=== PATIENT | male | born 1990 | race Caucasian/White ===

== ENCOUNTER 2022-09-17 14:06 | Emergency (ER) | payer BC, SELFPAY ==
[2022-09-17 14:32] VITALS: BP 154/97; PULSE 93; RESP 18; TEMP 36.7; O2SAT 97
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
[2022-09-17 16:39] LABS: Abs Immature Grans 0.04 10^3/uL (0.0-0.06); Absolute Basophil Count 0.08 10^3/uL (0.0-0.2); Absolute Eosinophil Count 0.16 10^3/uL (0.0-0.7); Absolute Lymphocyte Count 1.86 10^3/uL (1.2-3.4); Absolute Monocyte Count 0.52 10^3/uL (0.1-0.8); Absolute Neutrophil Count 4.35 10^3/uL (1.2-6.7); Basophils % 1.1; Eosinophils % 2.3; HCT 45.1 % (40.0-50.0); HGB 15.6 g/dL (13.5-17.5); Immature Grans % 0.6; Lymphocytes % 26.5; MCH 30.5 pg (27.0-33.0); MCHC 34.6 % (32.0-36.0); MCV 88 fL (80-95); MPV 10.3 fL (8.0-11.0); Monocytes % 7.4; Neutrophils % 62.1; Platelet Count 250 10^3/uL (130-400); RBC 5.11 10^6/uL (4.36-5.78); RDW 12.3 % (11.8-14.1); RDW-SD 38.6 fL; WBC 7.01 10^3/uL (4.4-10.8)
[2022-09-17 16:42] LABS: ESR 15 mm/hr (0-15)
[2022-09-17] MEDS: Ketorolac 15 MG/ML VIAL IVP (16:47)
[2022-09-17 16:50] LABS: ALT 32 U/L (16-63); AST 15 U/L (15-37); Albumin 4.6 g/dL (3.4-5.0); Alkaline Phosphatase 71 U/L (46-116); BUN 10 mg/dL (7-18); Bilirubin, Total 0.7 mg/dL (0.2-1.0); C-Reactive Protein 0.38 mg/dL (0.0-0.3); CREATININE 0.9 mg/dL (0.70-1.30); Calcium 9.6 mg/dL (8.5-10.1); Chloride 102 mmol/L (98-107); Estimated GFR 116.37 (mL/min/1.73m2); Glucose 97 mg/dL (74-106); Potassium 3.9 mmol/L (3.5-5.1); Sodium 141 mmol/L (136-145); Total Protein 8.6 g/dL (6.4-8.2)
--- NOTE | 2022-09-17 18:03 | DI.VRAD_ITS ---
PROCEDURE INFORMATION: Exam: CT Left Upper Extremity Without Contrast, Hand Exam date and time: 09/17/2022 5:39 PM Age: 32 years old Clinical indication: Other: Hand injury, immobile 4th and 5th digit TECHNIQUE: Imaging protocol: Computed tomography of the left upper extremity without contrast. Exam focused on the hand. COMPARISON: No relevant prior studies available. FINDINGS: Bones/joints: Obliquely oriented fractures of the ring and little finger distal diametaphysis of the metacarpals. The little finger has a cortical fragment medially. The remainder of the metacarpals and phalanges are intact. Soft tissues: Mild soft tissue edema near the fractures. No definite tendon rupture. IMPRESSION: Oblique fractures of the little and ring finger metacarpals. No intra-articular component. Dictated and Authenticated by: aCsey Kendrick MD. Ordering:DORA Taylor MD
--- NOTE | 2022-09-17 18:34 | NUR.NOTE ---
Nursing Note: Referral given to Care Management to [facility] Hand Surgeon, metacarpal fractures 4th and 5th. If possible by Thursday.
[2022-09-17 18:43] VITALS: BP 162/85; PULSE 88; RESP 18; O2SAT 98
--- NOTE | 2022-09-18 09:23 | CMACTNOTE_ITS ---
- If Service Date Differs Date of service: 09/18/22 Time of Service: 09:23 Care Management Activity Note Alvin is seen in the ED for finger fractures. At the request of ED provider, CASSIDY coordinates a referral to [facility] Hand Surgery to assist Alvin in obtaining an appointment for further evaluation and treatment. He has BCBS for insurance.
== END 2022-09-17 18:43 | disposition home or self-care (01) ==
PROVIDERS: Emergency Provider Emergency Medicine
DX: S62.395A Other fracture of fourth metacarpal bone, left hand, initial encounter for closed fracture (principal); S62.397A Other fracture of fifth metacarpal bone, left hand, initial encounter for closed fracture; W22.09XA Striking against other stationary object, initial encounter
CPT/HCPCS: 29125; 80053; 85652; 96374; 99284; 73200; 85025; 86140; J1885

== ENCOUNTER 2023-11-19 21:17 | Emergency (ER) | payer BC, SELFPAY ==
[2023-11-19 21:20] VITALS: BP 188/120; PULSE 100; RESP 16; TEMP 36.4; O2SAT 98
--- NOTE | 2023-11-19 21:30 | DI.RAD_ITS ---
Exam(s) XR HAND RT COMPLETE EXAM: XR HAND RT COMPLETE CLINICAL HISTORY: lacerations d/t dog bite, r/o fx. TECHNIQUE: 2D digital imaging was performed. Three views. COMPARISON: No exams were available for comparison FINDINGS: BONES: No acute fracture is present. No bony destructive lesion is seen. JOINTS: No dislocation present. SOFT TISSUE: Soft tissue wound involving the proximal portions of the 2nd and 3rd fingers at the vola r aspect. No foreign body. IMPRESSION: Soft tissue injury to the 2nd and 3rd fingers. No evidence of fracture or foreign body. DATA REPOSITORY: RADIATION DOSE DELIVERED:
--- NOTE | 2023-11-19 21:43 | ED.GENADUL_ITS ---
Discharge Plan Disposition Patient Disposition: Home Discharge Details Clinical Impression: Dog bite of multiple sites of right hand and fingers Primary Care Provider: Unknown,Unknown ED Provider: Kiley Mcleod Home Meds and New Rx's Prescriptions: New amoxicillin-pot clavulanate 875-125 mg tablet 1 tab PO BID Qty: 10 0RF Discharge Instructions Instructions: Animal Bite (ED) Additional Instructions: Please call [facility] Orthopedics at [phone] first thing in the morning to schedule an appointment for evaluation of your R middle finger laceration and likely tendon injury. Keep your splint clean and dry until you are seen by surgery. Take the antibiotics as prescribed to help prevent infection. You may use tylenol 650 every 6 hours or ibuprofen 600 mg every 8 hours as needed for discomfort. Elevate your hand above heart level to help with swelling. Return to emergency care if you develop severe hand pain, numbness/coolness to your finger tips, signs of infection such as pus drainage/foul odor/fevers, or if you are very concerned and need to be rechecked again immediately. HPI General Date/Time Provider Initiated Documentation: 11/19/23 21:19 . HPI Narrative: Alvin is a 33-year-old male who presents to the emergency department today for evaluation of right hand laceration. He reports that he has been dog sitting for his roommates dog, a large husky who is up-to-date for shots. He got bitten by the dog when he went to take the dog off of the lead. This occurred approximately 45 minutes prior to arrival to the emergency department. He was able to control bleeding with pressure and elevation. He does admit to drinking alcohol tonight, said he had a friend to drive him to the emergency department. He reports he is in good health, no chronic medical conditions or immunocompromise. He is up-to-date for tetanus, does not remember when he last tetanus booster. He is right-handed. Related Data Home Medications Medication Instructions Recorded Confirmed amoxicillin 875 mg-potassium 1 tab PO BID #10 tabs 11/19/23 clavulanate 125 mg tablet Previous Rx's Medication Instructions Recorded amoxicillin 875 mg-potassium 1 tab PO BID #10 tabs 11/19/23 clavulanate 125 mg tablet Allergies Allergy/AdvReac Type Severity Reaction Status Date / Time No Known Allergies Allergy Unverified 05/15/14 07:53 General Stated Complaint: AnimalBite SHELIA: 4 Review of Systems Narrative: see HPI Course Vital Signs Vital signs: Vital Signs Temperature 36.4 C 11/19/23 21:20 Pulse 100 H 11/19/23 21:20 Respiratory Rate 16 11/19/23 21:20 Blood Pressure 188/120 H 11/19/23 21:20 Pulse Oximetry 98 11/19/23 21:20 Temperature 36.4 C 11/19/23 21:20 Pulse 100 H 11/19/23 21:20 Respiratory Rate 16 11/19/23 21:20 Respiratory Effort Normal 11/19/23 21:25 Blood Pressure 188/120 H 11/19/23 21:20 Pulse Oximetry 98 11/19/23 21:20 Oxygen Delivery Method Room Air 11/19/23 21:20 Oxygen Flow Rate 0 11/19/23 21:20 Pain Level 3 11/19/23 21:20 Procedures Laceration Laceration 1: Site: hand (R middle finger) Size (cm): 5 Description: flap (curved laceration to radial aspect of R middle finger) Depth: simple, single layer Local Anesthetic: Lidocaine 2% Amount of anesthesia used (mL): 5 Pre-repair: wound explored, irrigated extensively and deep structures intact Skin layer closed with: nylon Size (cm): 4-0 Number of sutures: 3 Technique: simple, interrupted Medical Decision Making Alvin is a 33-year-old male who presents to the emergency department today for evaluation of right hand laceration. He reports that he has been dog sitting for his roommates dog, a large husky who is up-to-date for shots. He got bitten by the dog when he went to take the dog off of the lead. This occurred approximately 45 minutes prior to arrival to the emergency department. He was able to control bleeding with pressure and elevation. He does admit to drinking alcohol tonight, said he had a friend to drive him to the emergency department. He reports he is in good health, no chronic medical conditions or immunocompromise. He is up-to-date for tetanus, does not remember when he last tetanus booster. He is right-handed. Dog is UTD for shots; this is a dog that is well known to patient. Physical exam remarkable for 5 cm laceration around the proximal phalanx of the right middle finger, a superficial 4 cm laceration to the lateral aspect of the right middle finger, various superficial abrasions/lacerations to the fingers. a 2 cm curved laceration noted to the palmar aspect of the R hand. Full extension, decreased flexion to right middle PIP. Brisk cap refill. No other injuries reported. Xray performed to r/o fracture or foreign body. As pt has decreased flexion to middle finger, concern for flexor tendon injury. Xray negative for acute abnormality. While in the emergency dept Alvin received ibuprofen for pain control and tdap booster (last recorded was in 2017 according to medical records). Augmentin given PO. Wound was irrigated extensively with tap water and cleansed with hibiclens. The wound was explored to the base in a bloodless field after infiltration with local anesthetic and digital block; flexor tendon was noted to be torn. No foreign bodies visualized. 3 sutures were placed to loosely approximate edges, a petroleum gauze was applied, and kerlix wrap applied. A splint was applied to maintain finger in position of comfort. 22:45: Call placed to [facility] hand surgery to arrange for follow up. Awaiting callback, handoff report given to Dr Lacey, overnight attending Quality:[facility] Health Related Social Needs: No Data to Display [facility] All Active Problems (Updated 11/19/23 @ 23:02 by Kiley Crenshaw) Dog bite of multiple sites of right hand and fingers (Acute) Social History Smoking/Tobacco Use Status: Never Smoking risk assessment performed?: Yes Drug use: Never Substance use type: does not use Do you feel safe at home: Yes Do you feel safe in your relationship?: Yes
[2023-11-19] MEDS: Ibuprofen 600 MG TAB PO (21:45)
[2023-11-19] MEDS: Chlorhexidine 4% 120 ML BTL (21:45)
[2023-11-19] MEDS: Amoxicillin 875/Clav. 125 TAB PO (21:45)
[2023-11-19] MEDS: Tetanus & Diphtheria Tox,ADULT 0.5 ML VIAL IM (21:46)
[2023-11-19] MEDS: Lidocaine 2% Pres-Free 5 ML VIAL IJ (22:26)
--- NOTE | 2023-11-19 23:31 | DI.VRAD_ITS ---
PROCEDURE INFORMATION: Exam: XR Right Hand Exam date and time: 11/19/2023 10:05 PM Age: 33 years old Clinical indication: Injury or trauma; Other: Lacerations d/t dog bite, R/O FX; Hand; Right TECHNIQUE: Imaging protocol: Radiologic exam of the right hand. Views: 3 or more views. COMPARISON: No relevant prior studies available. FINDINGS: Bones/joints: No fracture or dislocation. Soft tissues: No soft tissue foreign body. Soft tissue swelling of the right 3rd finger. Cannot exclude mild soft tissue emphysema of the radial base of the 3rd finger. IMPRESSION: 1. No fracture or dislocation. 2. No soft tissue foreign body. Dictated and Authenticated by: Joss Montalvo MD. Ordering:MICHAEL Cao MD
--- NOTE | 2023-11-19 23:33 | W.EDPROG ---
Date of service: 11/19/23 Time of Service: 23:33 Medical Decision Making Discussed case with Dr. Browne, plastic surgeon at [facility]. He has patient's information, will help facilitate follow-up. Patient to call in the morning to schedule follow-up appointment on Thursday or Thursday. Dr. Browne is comfortable with patient waiting until Thursday if needed, especially as he will be treated with antibiotics. Reviewed discharge instructions with patient, including red flags indicate need for return to emergency care. He is agreeable with plan of care Quality:[facility] Health Related Social Needs: No Data to Display Sign Out Sign Out Data: Sign Out Comment: Alvin is a 33-year-old male [id number] presents to the emergency department today for evaluation of dog bite to right hand. 5 cm curved laceration to right middle finger was loosely approximated with three 4-0 Ethilon sutures. Tendon was visualized to be at least partially lacerated. There is still some flexion to the finger, however not full range of motion. Patient was given ibuprofen and Augmentin while in the emergency department. Awaiting callback from [facility] hand for follow-up. Last updated by Kiley Mcleod at 11/19/23 23:26 Discharge Plan Disposition Patient Disposition: Home Discharge Details Clinical Impression: Dog bite of multiple sites of right hand and fingers Primary Care Provider: Unknown,Unknown ED Provider: Kiley Mcleod Home Meds and New Rx's Prescriptions: New amoxicillin-pot clavulanate 875-125 mg tablet 1 tab PO BID Qty: 10 0RF Discharge Instructions Instructions: Animal Bite (ED) Additional Instructions: Please call [facility] Orthopedics at [phone] first thing in the morning to schedule an appointment for evaluation of your R middle finger laceration and likely tendon injury. Keep your splint clean and dry until you are seen by surgery. Take the antibiotics as prescribed to help prevent infection. You may use tylenol 650 every 6 hours or ibuprofen 600 mg every 8 hours as needed for discomfort. Elevate your hand above heart level to help with swelling. Return to emergency care if you develop severe hand pain, numbness/coolness to your finger tips, signs of infection such as pus drainage/foul odor/fevers, or if you are very concerned and need to be rechecked again immediately.
[2023-11-19 23:38] VITALS: BP 168/92; PULSE 72; RESP 16; O2SAT 99
--- NOTE | 2023-11-19 23:47 | NUR.NOTE ---
Animal bite form faxed to [facility] Clerk's office. Will ask incoming ward secretary to touch base with [facility] Health Officer Izaiah Calzada in am to report animal bite. Nursing Note:
== END 2023-11-19 23:39 | disposition home or self-care (01) ==
PROVIDERS: Emergency Provider Nurse Practitioner Family
DX: S61.451A Open bite of right hand, initial encounter (principal); S61.252A Open bite of right middle finger without damage to nail, initial encounter; W54.0XXA Bitten by dog, initial encounter
CPT/HCPCS: 00123; 12002; 90471; 90714; 99283; 73130